=== PATIENT | female | born 1950 | race Caucasian/White ===

== ENCOUNTER → 2016-07-17 | Outpatient (CLI) | payer MEDICARE, OTHER ==
[~2016-07-17] MED LIST: CEFTIN500 MG PO; FERROUS SULFAT325 M2 PO; LEVAQUIN500 MG PO; NORCO 5-325 TA1 EACH PO
== END ==
LOC: RAD 09:24
DX: M54.5 Low back pain (principal); M47.816 Spondylosis without myelopathy or radiculopathy, lumbar region
CPT/HCPCS: 72110

== ENCOUNTER → 2016-08-08 | Outpatient (CLI) | payer MEDICARE, OTHER ==
[2016-08-08 12:58] LABS: HEMOGLOBIN 11.2 gm/dl (12.3-15.3); RED BLOOD COUNT 3.8 M/UL (4.00-5.10); WHITE BLOOD COUNT 5.7 K/UL (4.5-11.0)
[2016-08-08 13:47] LABS: BUN/CREATININE RATIO 21 (0-10)
== END ==
LOC: LAB 10:12
PROVIDERS: Nurse Practitioner Primary Care
DX: E03.9 Hypothyroidism, unspecified (principal); E53.8 Deficiency of other specified B group vitamins; D64.9 Anemia, unspecified; E78.5 Hyperlipidemia, unspecified; R60.9 Edema, unspecified; M81.0 Age-related osteoporosis without current pathological fracture; G40.909 Epilepsy, unspecified, not intractable, without status epilepticus
CPT/HCPCS: 36415; 80053; 80184; 81001; 82607; 82728; 83540; 83550; 84443; 85025

== ENCOUNTER 2016-08-13 11:04 | Emergency (ER) | payer MEDICARE, OTHER ==
[2016-08-13 12:37] LABS: RED BLOOD COUNT 3.4 M/UL (4.00-5.10); WHITE BLOOD COUNT 15.5 K/UL (4.5-11.0)
[2016-08-14 12:52] LABS: ACINETOBACTER BAUMANNII Not Detected (Negative); CANDIDA ALBICANS Not Detected (Negative); CANDIDA KRUSEI Not Detected (Negative); CANDIDA TROPICALIS Not Detected (Negative); ENTEROCOCCUS Not Detected (Negative); ESCHERICHIA COLI Not Detected (Negative); HAEMOPHILUS INFLUENZAE Not Detected (Negative); KLEBSIELLA OXYTOCA Not Detected (Negative); KLEBSIELLA PNEUMONIAE Not Detected (Negative); KPC-CARBAPENEM-RESISTANCE GENE Not Detected (Negative); PSEUDOMONAS AERUGINOSA Not Detected (Negative); SERRATIA MARCESANS Not Detected (Negative); STAPHYLOCOCCUS Not Detected (Negative); STAPHYLOCOCCUS AUREUS Not Detected (Negative); STREP AGALACTIAE (GROUP B) Not Detected (Negative); STREP PYOGENES (GROUP A) Not Detected (Negative); STREPTOCOCCUS Not Detected (Negative); mecA (METHICILLIN RESIST GENE Not Detected (Negative); vanA/B (VANCOMYCIN RESIST GENE Not Detected (Negative)
[2016-08-14 14:39] LABS: PROTEUS DETECTED (Negative)
== END 2016-08-13 17:45 ==
LOC: ER1 11:04
PROVIDERS: Emergency Medicine
DX: N13.2 Hydronephrosis with renal and ureteral calculous obstruction (principal); N39.0 Urinary tract infection, site not specified; E87.6 Hypokalemia; D72.829 Elevated white blood cell count, unspecified; D64.9 Anemia, unspecified; I10 Essential (primary) hypertension; F79 Unspecified intellectual disabilities; I25.10 Atherosclerotic heart disease of native coronary artery without angina pectoris
CPT/HCPCS: 36415; 80053; 81001; 82150; 83605; 83690; 84484; 85025; 87040; 87077; 87086; 87150; 87186; 93005; 96365; 99284; J0696; J7030; J7050

== ENCOUNTER → 2016-10-02 | Outpatient (CLI) | payer MEDICARE, OTHER ==
[2016-10-02 11:13] LABS: RED BLOOD COUNT 3.76 M/UL (4.00-5.10); WHITE BLOOD COUNT 5.1 K/UL (4.5-11.0)
[2016-10-02 12:05] LABS: BUN/CREATININE RATIO 35 (0-10)
== END ==
LOC: LAB 10:14
PROVIDERS: Nurse Practitioner Primary Care
DX: Z51.81 Encounter for therapeutic drug level monitoring (principal); E03.9 Hypothyroidism, unspecified; D64.9 Anemia, unspecified; D51.3 Other dietary vitamin B12 deficiency anemia; D52.9 Folate deficiency anemia, unspecified; E78.5 Hyperlipidemia, unspecified; E55.9 Vitamin D deficiency, unspecified
CPT/HCPCS: 36415; 80053; 80061; 80175; 80184; 82607; 82728; 82746; 83540; 83550; 84443; 85025

== ENCOUNTER → 2016-10-16 | Outpatient (CLI) | payer MEDICARE, OTHER | LOC: RAD 11:00 | DX: S69.92XA Unspecified injury of left wrist, hand and finger(s), initial encounter (principal) | CPT/HCPCS: 73110 ==

== ENCOUNTER → 2016-10-21 | Outpatient (CLI) | payer MEDICARE, OTHER ==
[2016-10-21 09:33] LABS: RED BLOOD COUNT 3.57 M/UL (4.00-5.10); WHITE BLOOD COUNT 4.7 K/UL (4.5-11.0)
[2016-10-21 09:57] LABS: BUN/CREATININE RATIO 35 (0-10)
== END ==
LOC: LAB 08:50
PROVIDERS: Nurse Practitioner Primary Care
DX: G40.909 Epilepsy, unspecified, not intractable, without status epilepticus (principal); M81.0 Age-related osteoporosis without current pathological fracture; E03.9 Hypothyroidism, unspecified; E55.9 Vitamin D deficiency, unspecified
CPT/HCPCS: 36415; 80053; 80061; 80184; 84443; 85025

== ENCOUNTER → 2017-01-05 | Outpatient (CLI) | payer MEDICARE, OTHER | LOC: KOH-I 09:58 | DX: I10 Essential (primary) hypertension (principal) | CPT/HCPCS: 77080 ==

== ENCOUNTER → 2020-10-09 | Outpatient (CLI) | payer MEDICARE, OTHER ==
[~2020-10-09] MED LIST changes: +AMITIZA24 MCG PO; +ANTIFUNGAL POWD71 GM TP; +ARTIFICIAL TEA1 EACH EYEBOTH; +ARTIFICIAL TEAR15 M6 OU; +BOUDREAUXS10 GM TP; +CALCIUM 600 +1 EAC8 PO; +CALMOSEPTINE OI71 GM TP; +CEFUROXIME250 MG PO; +CITRATE OF MAG296 ML PO; +CLARITIN10 M2 PO; +CLARITIN10 MG PO; +CLEARLAX238 GM PO; +CLOTRIMAZOLE-BE30 ML TP; +COLACE 100MG C100 MG PO; +COREG 3.125M3.125 MG PO; +DEXILANT30 MG PO; +EVENITY105 MG/1.1 SQ; +FEOSOL325 MG PO; +K-DUR TAB 10 M10 MEQ PO; +KEFLEX CAP 500500 MG PO; +KEPPRA 500 MG500 MG PO; +KEPPRA1000 MG PO; +KEPPRA500 MG PO; +LAMICTAL100 MG PO; +LEVAQUIN750 MG PO; +LOPERAMIDE2 MG PO; +LUTEIN10 MG PO; +MAGNESIUM CITR296 ML PO; +MAPAP325 MG PO; +MINERAL OIL HEAV1 ML EARBOTH; +MINERAL OIL HEAV1 ML MC; +MIRALAX17 GM PO; +MOBIC7.5 MG PO; +Magic Butt Paste TOP; +NASAL SPRAY30 M3; +NITROFURANTOIN100 MG PO; +NIZORAL 2% CREA15 GM TOP; +NYSTATIN15 GM TP; +OMNICEF 300 MG300 MG PO; +PAIN RELIEF325 MG PO; +PHENOBARBITAL32.4 MG PO; +PLAVIX 75 MG TA75 MG PO; +PROBIOTIC1 EAC1 PO; +PROLIA INJ60 MG/1 ML SC; +RISAMINE OINTM113 GM TP; +SALINE NASAL M126 ML; +SEROQUEL25 MG PO; +SORBITOL 70% S480 ML PO; +SULFAMETHOXAZO1 EACH PO; +SYNTHROID25 MCG PO; +THERAGRAN M TAB1 EA PO; +TRIMETHOPRIM100 MG PO; +VITAMIN B-121000 MCG PO; +VITAMIN D325 MC6 PO; +VITAMIN D35000 UNI1 PO; +ZANTAC150 MG PO; +ZOCOR 40 MG TAB40 MG PO; +ZOCOR40 MG PO; +ZOFRAN ODT 4 MG4 MG PO
== END ==
LOC: LAB 13:56
DX: N39.0 Urinary tract infection, site not specified (principal); R32 Unspecified urinary incontinence
CPT/HCPCS: 81001; 87077; 87086; 87186; G0463

== ENCOUNTER → 2021-01-11 | Outpatient (CLI) | payer MEDICARE, OTHER | LOC: CT 01-03 10:30 | DX: N20.0 Calculus of kidney (principal) ==

== ENCOUNTER → 2021-07-04 | Outpatient (CLI) | payer MEDICARE, OTHER | LOC: RAD 10:02 | DX: N20.0 Calculus of kidney (principal); K59.00 Constipation, unspecified | CPT/HCPCS: 74018 ==

== ENCOUNTER 2021-07-17 12:04 | Inpatient (IN) | payer MEDICARE, OTHER ==
[~2021-07-17] VITALS: Ht 162.6 cm; Wt 84.8 kg
[~2021-07-17 12:04] MED LIST changes: -SYNTHROID25 MCG PO; +SYNTHROID50 MCG PO
[2021-07-17 13:00] LABS: HEMOGLOBIN 11.9 gm/dl (12.3-15.3); RED BLOOD COUNT 3.98 M/UL (4.00-5.10); WHITE BLOOD COUNT 8.4 K/UL (4.5-11.0)
[2021-07-17] MEDS ORDERED: PROTONIX 40 MG40 M1 PO (14:17)
[2021-07-17] MEDS ORDERED: METOCLOPRAMIDE H5 MG PO (14:17)
[2021-07-17] MEDS ORDERED: LISINOPRIL-HCT1 EACH PO (14:17)
[2021-07-17] MEDS ORDERED: SUCRALFATE1 GM PO (14:18)
[2021-07-18 05:32] LABS: HEMOGLOBIN 9.7 gm/dl (12.3-15.3); RED BLOOD COUNT 3.21 M/UL (4.00-5.10); WHITE BLOOD COUNT 6.1 K/UL (4.5-11.0)
== END 2021-07-18 22:25 | disposition expired | DRG 871 ==
LOC: ER1 12:04 → CCU 13:43 → CDU 13:43 → CCU 16:16
PROVIDERS: Emergency Medicine; ADMIT Internal Medicine
PROC: 3E03329 Introduction of Other Anti-infective into Peripheral Vein, Percutaneous Approach (ICD-10-PCS; principal; 2021-07-17)
PROC: 3E043XZ Introduction of Vasopressor into Central Vein, Percutaneous Approach (ICD-10-PCS; 2021-07-17)
PROC: 02HV33Z Insertion of Infusion Device into Superior Vena Cava, Percutaneous Approach (ICD-10-PCS; 2021-07-17)
PROC: B548ZZA Ultrasonography of Superior Vena Cava, Guidance (ICD-10-PCS; 2021-07-17)
PROC: 0BH17EZ Insertion of Endotracheal Airway into Trachea, Via Natural or Artificial Opening (ICD-10-PCS; 2021-07-17)
PROC: 5A1935Z Respiratory Ventilation, Less than 24 Consecutive Hours (ICD-10-PCS; 2021-07-17)
DX: A41.9 Sepsis, unspecified organism (principal); R65.21 Severe sepsis with septic shock; G93.41 Metabolic encephalopathy; J69.0 Pneumonitis due to inhalation of food and vomit; J80 Acute respiratory distress syndrome; N17.9 Acute kidney failure, unspecified; N39.0 Urinary tract infection, site not specified; I50.32 Chronic diastolic (congestive) heart failure; K56.609 Unspecified intestinal obstruction, unspecified as to partial versus complete obstruction; E87.2 Acidosis; Z20.822 Contact with and (suspected) exposure to COVID-19; Z66 Do not resuscitate; G40.909 Epilepsy, unspecified, not intractable, without status epilepticus; I11.0 Hypertensive heart disease with heart failure; M81.0 Age-related osteoporosis without current pathological fracture; F71 Moderate intellectual disabilities; E03.9 Hypothyroidism, unspecified; H35.30 Unspecified macular degeneration; G80.9 Cerebral palsy, unspecified; G47.00 Insomnia, unspecified; E78.5 Hyperlipidemia, unspecified; B96.20 Unspecified Escherichia coli [E. coli] as the cause of diseases classified elsewhere; B96.4 Proteus (mirabilis) (morganii) as the cause of diseases classified elsewhere; K59.09 Other constipation; R34 Anuria and oliguria; Z87.440 Personal history of urinary (tract) infections; Z98.890 Other specified postprocedural states; Z91.02 Food additives allergy status; Z79.899 Other long term (current) drug therapy
CPT/HCPCS: 0240U; 31500; 36415; 36600; 43752; 51702; 71045; 74018; 80053; 80202; 82550; 82553; 82803; 83605; 83735; 83880; 84100; 84484; 85025; 85610; 86140; 87040; 93005; 94002; 94003; 94760; 96374; 96375; 99285; C1751; C9113; J1720; J1953; J2185; J2250; J2370; J2560; J2930; J3370; J7030; J7070; P9045; P9047